=== PATIENT | male | born 1980 | race African-American/Black ===

== ENCOUNTER 2016-12-29 13:13 | Emergency (ER) | payer OTHER ==
--- NOTE | ~2016-12-29 | CT16 ---
[facility] A Service of [facility] & [facility] RADIOLOGY TEXT RESULTS PATIENT: AZALIA RAM LOCATION: [facility] : 78 UNIT #: [id number] AGE: [address]: David Jay MD SEX: M ORDER DR: [id number] [facility] [address] [place], [place] [address] [id number] E MR#: [id number] Acc #: [id number] NAME: AZALIA RAM : 1980 SEX: M STUDY DATE/TIME: 12/29/2016 16:21 UNIT: [facility] ROOM: STUDY DESCRIPTION: CT Angio Chest for PE Attending Physician: Jaiorn Jay M.D. Ordering Physician: Ed Markos Jules M.D. Primary Care Physician: Primary Care Physician No MEDICAL IMAGING REPORT This report is preliminary unless electronic signature is present EXAM CT angiogram chest with IV contrast HISTORY Chest pain and shortness of air for 3 weeks. Legs swelling. FINDINGS IV contrast-enhanced CT angiogram of the chest was performed with 3-D reconstructions. This CT exam was performed with one or more of the following radiation dose reduction techniques: Automatic exposure control, adjustment of mA and/or kV according to patient size, and iterative reconstruction. There are no focal infiltrates. No pleural effusions. Minimal subpleural atelectasis in the posterior lower lobes. No evidence of pulmonary embolus. Sensitivity is decreased by suboptimal IV contrast bolus timing and motion artifact. Small peripheral pulmonary emboli can, therefore not be confidently excluded. No large central pulmonary embolus. Normal caliber thoracic aorta. Normal caliber pulmonary arteries. IMPRESSION 1. No acute findings are identified. 2. No evidence of pulmonary embolus. Exam sensitivity is partly limited by contrast bolus timing and motion. Small peripheral pulmonary emboli can, therefore not be confidently excluded. 3. No infiltrates. Dictated by... Troy Reza M.D. THIS IS AN ELECTRONICALLY VERIFIED REPORT Troy Reza M.D. at 12/30/2016 3:06 PM [facility] A Service of [facility] RADIOLOGY TEXT RESULTS PATIENT: AZALIA RAM LOCATION: [facility] : 78 UNIT #: [id number] AGE: [address]: David Jay MD SEX: M ORDER DR: Sal TD: 12/30/2016 01:57 JOB #: [id number] MEDICAL IMAGING REPORT Page 1 of 1 COPY
--- NOTE | ~2016-12-29 | EKG ---
PATIENT: AZALIA RAM UNIT #: [id number] Ventricular Rate: 63 BPM Atrial Rate: 63 BPM P-R Interval: 138 ms QRS Duration: 86 ms Q-T Interval: 418 ms QTC Calculation(Bezet): 427 ms P Bud: 26 degrees Calculated R Bud: 22 degrees Calculated T Bud: -8 degrees Diagnosis Line: Normal sinus rhythm Diagnosis Line: Nonspecific T wave abnormality Diagnosis Line: Abnormal ECG Diagnosis Line: No previous ECGs available Diagnosis Line: Confirmed by TIMI MARINO MD ([id number]) on Diagnosis Line: 12/29/2016 7:17:01 PM INTERPRETING MD: TIFFANIE
[~2016-12-29 13:13] MED LIST: CLEOCIN PO; FLEXERIL PO; IBUPROFEN PO; MEDROL PO; NORCO 5/325 TAB1 TAB PO; VICODIN 5/500 T1 TAB PO
[2016-12-29 13:50] LABS: BASOPHIL# 0.1 X10e3 (0-0.3); BASOPHIL% 1.1 % (0-2.5); EOSINOPHIL# 0.1 X10e3 (0-0.7); EOSINOPHIL% 1.1 % (0.0-7.0); HEMATOCRIT 45.2 % (38.0-50.0); HEMOGLOBIN 15.2 gm/dL (13.0-16.0); LYMPHOCYTE# 2.1 X10e3 (1.0-3.5); LYMPHOCYTE% 19.7 % (17.0-45.0); MEAN CELL VOLUME 92.3 FL (83-96); MEAN CORPUSCULAR HGB CONC 33.6 g/dL (30-36); MEAN PLATELET VOLUME 9.9 FL (6.5-11.5); MONOCYTE# 0.6 X10e3 (0-1.0); MONOCYTE% 5.9 % (3.0-12.0); NEUTROPHIL# 7.7 X10e3 (1.5-7.1); NEUTROPHIL% 72.2 % (40-75); PLATELET COUNT 157 X10e3 (140-420); RED CELL DISTRIBUTION WIDTH 13.2 % (11.0-15.5); WHITE BLOOD COUNT 10.6 X10e3 (4.0-10.5)
[2016-12-29 14:04] LABS: PARTIAL THROMBOPLASTIN TIME 27.5 SECONDS (23.5-31.3); PROTHROMBIN TIME (PATIENT) 11.1 SECONDS (10.0-11.7)
[2016-12-29 14:05] LABS: DIFF IND NO
[2016-12-29 14:23] LABS: BUN/CREATININE RATIO 13.33; CALCIUM SERUM 8.9 mg/dL (8.4-10.2); CREATININE SERUM 0.9 mg/dL (0.6-1.4); POTASSIUM 3.8 mmol/L (3.5-5.1)
[2016-12-29 15:47] LABS: POC - CKMB 2.2 ng/mL (0.0-7.9); POC - TROPONIN <0.05 ng/mL (<=0.05)
[2016-12-29 18:34] LABS: URINE SOURCE CLEAN CATCH
[2016-12-29 18:43] LABS: URINE APPEARANCE CLEAR; URINE BILIRUBIN NEG (NEG); URINE BLOOD TRACE (NEG); URINE COLOR YELLOW; URINE GLUCOSE NEG (NEG); URINE KETONE NEG (NEG); URINE LEUKOCYTE ESTERASE 2+ (NEG); URINE NITRATE NEG (NEG); URINE PROTEIN NEG (NEG); URINE UROBILINOGEN 0.2 MG/DL (NEG)
[2016-12-29 18:45] LABS: CULTURE INDICATED? YES; URINE BACTERIA AUWI NEG (NEGATIVE); URINE SQUAMOUS EPITHELIAL CELL OCC /[HPF]; UWBCS1 AUWI 25-50 (0-5)
[2017-01-01 07:30] LABS: CHLAMYDIA TRACH Not Detected (Not Detected); N GONOR Detected (Not Detected)
== END 2016-12-29 18:19 | disposition home or self-care (01) ==
LOC: CED 13:13 → CFTX 13:56 → CED 13:56
PROVIDERS: Emergency Medicine
DX: J20.9 Acute bronchitis, unspecified (principal); N34.2 Other urethritis; Z98.890 Other specified postprocedural states; Z87.891 Personal history of nicotine dependence; Z91.018 Allergy to other foods
CPT/HCPCS: 36415; 71275; 80048; 81003; 82553; 83880; 84484; 85025; 85610; 85730; 87086; 87491; 87591; 93005; 96372; 99285; J0696; Q9967